=== PATIENT | female | born 1970 | race Caucasian/White ===

== ENCOUNTER → 2021-07-04 | Outpatient (CLI) | payer BC ==
--- NOTE | 2021-07-05 10:26 | KCIC ---
EXAM: MRI left shoulder DATE: 07/04/2021 2:45 PM COMPARISON: None INDICATION: Reason: LEFT SHOULDER PAIN / Spl. Instructions: / History: Left shoulder pain in recent months, not improving. LROM. NKI. TECHNIQUE: Multiplanar, multisequence MRI of the left shoulder was performed without contrast. FINDINGS: AC joint degenerative changes are seen. Subacromial-subdeltoid bursal edema, bursitis. No os acromial e. Type II acromion. Mild supraspinatus and infraspinatus tendinosis. No rotator cuff tear. Rotator cuff muscle signal and bulk is normal. No discrete labral tear. Long head biceps tendon is intact. No acute fracture or osteonecrosis. Articular cartilage is grossly preserved. Mild edema and thickeni ng of the inferior glenohumeral ligament/joint capsule. IMPRESSION: 1. No rotator cuff tear. 2. Supraspinatus and infraspinatus tendinosis. 3. AC joint DJD. 4. Mild edema and thickening of the inferior glenohumeral ligament/joint capsule may be seen with ad hesive capsulitis. Electronically signed by: Barak Crane MD (07/05/2021 10:23 AM) [id number]
== END ==
LOC: KCIC MRI 14:26
PROVIDERS: ATTEND Physician Assistant Medical
DX: M19.012 Primary osteoarthritis, left shoulder (principal); M75.82 Other shoulder lesions, left shoulder; M75.52 Bursitis of left shoulder; M25.812 Other specified joint disorders, left shoulder
CPT/HCPCS: 73221